=== PATIENT | female | born 1995 | race Asian ===

== ENCOUNTER 2023-08-27 17:43 | Emergency (ER) | payer BC ==
[~2023-08-27] VITALS: Ht 172.7 cm; Wt 95.0 kg
[2023-08-27 17:57] VITALS: TEMP 97.8
[2023-08-27 20:08] VITALS: BP 125/78; PULSE 98
== END 2023-08-27 20:08 | disposition home or self-care (01) ==
LOC: COL.ER 17:43
DX: Z34.92 Encounter for supervision of normal pregnancy, unspecified, second trimester (principal); Z3A.18 18 weeks gestation of pregnancy